=== PATIENT | female | born 1930 | race Caucasian/White ===

== ENCOUNTER 2022-07-05 14:27 | Emergency (ER) | payer MEDICARE, OTHER ==
[2022-07-05 14:37] VITALS: BP 162/78; PULSE 64
[2022-07-05] MEDS ORDERED: Ampicillin/Sulbactam Na 3 GM Vial IVPUSH ONE ×2 (14:48→21:00)
[2022-07-05 15:16] LABS: ANION GAP 10.2 mmol/L (5-15); CHLORIDE,CL 103 mmol/L (98-107); ESTIMATED GFR 39 mL/min (>=60); SODIUM,NA 139 mmol/L (136-145)
== END 2022-07-05 15:38 | disposition home or self-care (01) ==
LOC: VM.ED 14:27
DX: L03.211 Cellulitis of face (principal); I10 Essential (primary) hypertension; F41.9 Anxiety disorder, unspecified; E66.9 Obesity, unspecified; Z79.899 Other long term (current) drug therapy; Z88.8 Allergy status to other drugs, medicaments and biological substances; Z88.1 Allergy status to other antibiotic agents
CPT/HCPCS: 36415; 80053; 83605; 85025; 86140; 87040; 96365; 99283; J0295